=== PATIENT | female | born 1935 | race Caucasian/White ===

== ENCOUNTER → 2016-11-24 | Outpatient (CLI) | payer MEDICARE, OTHER, MEDICAID ==
[~2016-11-24] MED LIST: ALBU6.7H IH; ALBUTEROL INHALER INH; ALPR0.25 PO; ASPI-345 PO; DOXY100C2 PO; GLIP5TAB2 PO; LISI-596 PO; LISI1TAB8 PO; MULT-301 PO; RANI150T15 PO; ROSU10TA PO; [UNRECOGNIZED DRUG - OTHER]; crestor; lisinopril; vitamins; xanax; zantac
--- NOTE | 2016-11-24 18:40 | Diagnostic Imaging Report ---
INDICATION: Total knee arthroplasty in September 2016. EXAMINATION: Right knee dated 11/24/2016. FINDINGS: Two views of the knee demonstrate postoperative change with total knee arthroplasty noted. No fractures or dislocations are seen. There is a small joint effusion. No findings of loosening about the orthopedic hardware. IMPRESSION: 1. Postoperative change with small joint effusion, otherwise negative knee. Dictated by: Dictated on workstation # [id number]
== END ==
LOC: RAD 15:28
PROVIDERS: ATTEND Orthopaedic Surgery
DX: Z96.651 Presence of right artificial knee joint (principal)
CPT/HCPCS: 73560

== ENCOUNTER → 2016-12-04 | Outpatient (CLI) | payer MEDICARE, OTHER, MEDICAID ==
--- NOTE | 2016-12-04 14:46 | Diagnostic Imaging Report ---
INDICATION: Right leg pain. Right leg venous Doppler study was performed in the routine fashion with color flow Doppler and waveform analysis. FINDINGS: The right common femoral vein, superficial femoral vein, popliteal vein and visualized portion of the tibial veins show normal compressibility and venous flow patterns. There is normal augmentation. IMPRESSION: No evidence of deep vein thrombosis of the major veins of the right leg. Dictated by: Dictated on workstation # [id number]
== END ==
LOC: RAD 13:57
PROVIDERS: ATTEND Physician Assistant
DX: M79.89 Other specified soft tissue disorders (principal)

== ENCOUNTER → 2017-01-15 | Outpatient (CLI) | payer MEDICARE, OTHER, MEDICAID | LOC: RAD 10:35 | PROVIDERS: ATTEND Family Medicine | DX: R22.43 Localized swelling, mass and lump, lower limb, bilateral (principal); R23.0 Cyanosis; M79.605 Pain in left leg; M79.604 Pain in right leg | CPT/HCPCS: 93925 ==